=== PATIENT | female | born 1965 | race Caucasian/White ===

== ENCOUNTER → 2023-10-26 06:20 | Day surgery (SDC) | payer OTHER, SELFPAY | LOC: GI 06:20 | PROVIDERS: ATTENDING PHYSICIAN Specialist | DX: Z12.11 Encounter for screening for malignant neoplasm of colon (principal); K63.5 Polyp of colon; R07.89 Other chest pain; R13.10 Dysphagia, unspecified; K22.89 Other specified disease of esophagus; K20.80 Other esophagitis without bleeding | CPT/HCPCS: 45380; 43239; 88305 ==